=== PATIENT | male | born 1950 | race Caucasian/White ===

== ENCOUNTER 2018-07-03 10:07 | Outpatient (RCR) | payer MEDICARE, BC | END 2018-07-20 | disposition home or self-care (01) | LOC: WCC 10:07 | DX: L59.8 Other specified disorders of the skin and subcutaneous tissue related to radiation (principal); M27.8 Other specified diseases of jaws; Z85.118 Personal history of other malignant neoplasm of bronchus and lung; Z85.810 Personal history of malignant neoplasm of tongue | CPT/HCPCS: 71046; G0277; G0463 ==

== ENCOUNTER 2018-07-03 11:12 | Outpatient (CLI) | payer MEDICARE, BC ==
--- NOTE | 2018-07-03 17:06 | Diagnostic Imaging Report ---
Indication: Shortness of breath Technique: 2 views of the chest Comparison: 05/08/2012 Findings: Wedge-shaped opacity with air bronchograms is seen in the inferior periphery of the right upper lobe. The remainder of the lungs are clear. The pleural spaces are clear There is somewhat hyperinflated. The heart size is normal. The aorta is tortuous and calcified. There is suggestion of a surgical staple line in the left pulmonary hilum. No evidence of pneumothorax. There is a right arm PICC in place. Impression: Wedge-shaped opacity in the right midlung, probably in the inferior right upper lobe, likely pneumonia. The possibility of underlying mass lesion can also be considered, and follow-up to resolution is recommended with consideration for chest CT should opacity fail to resolve No evidence of pneumothorax PICC in place Evidence of prior left lung surgery Findings discussed by phone with Dr. Dee at the time of interpretation
== END 2018-07-03 13:12 | disposition home or self-care (01) ==
LOC: RAD 11:12
DX: R06.02 Shortness of breath (principal); Z98.890 Other specified postprocedural states
CPT/HCPCS: 71046

== ENCOUNTER 2018-07-21 10:00 | Outpatient (RCR) | payer MEDICARE, BC | END 2018-08-20 | disposition home or self-care (01) | LOC: WCC 10:00 | DX: L59.8 Other specified disorders of the skin and subcutaneous tissue related to radiation (principal); M27.8 Other specified diseases of jaws; Z85.810 Personal history of malignant neoplasm of tongue; Z85.118 Personal history of other malignant neoplasm of bronchus and lung | CPT/HCPCS: G0277 ×19 ==

== ENCOUNTER 2018-08-21 08:23 | Outpatient (RCR) | payer MEDICARE, BC | END 2018-09-19 | disposition home or self-care (01) | LOC: WCC 08:23 | DX: M27.8 Other specified diseases of jaws (principal); L59.8 Other specified disorders of the skin and subcutaneous tissue related to radiation; L98.491 Non-pressure chronic ulcer of skin of other sites limited to breakdown of skin; Z85.118 Personal history of other malignant neoplasm of bronchus and lung; Z85.810 Personal history of malignant neoplasm of tongue; Z79.899 Other long term (current) drug therapy | CPT/HCPCS: G0277 ×18 ==

== ENCOUNTER 2019-02-07 14:34 | Outpatient (RCR) | payer MEDICARE, BC | END 2019-02-19 | disposition home or self-care (01) | LOC: WCC 14:34 | DX: L59.8 Other specified disorders of the skin and subcutaneous tissue related to radiation (principal); M27.8 Other specified diseases of jaws; Z85.118 Personal history of other malignant neoplasm of bronchus and lung; Z85.810 Personal history of malignant neoplasm of tongue; Z79.899 Other long term (current) drug therapy | CPT/HCPCS: G0277; G0463 ==

== ENCOUNTER 2019-02-20 08:56 | Outpatient (RCR) | payer MEDICARE, BC | END 2019-03-22 | disposition home or self-care (01) | LOC: WCC 08:56 | DX: L59.8 Other specified disorders of the skin and subcutaneous tissue related to radiation (principal); M27.8 Other specified diseases of jaws; Z79.899 Other long term (current) drug therapy; Z85.810 Personal history of malignant neoplasm of tongue; Z85.118 Personal history of other malignant neoplasm of bronchus and lung | CPT/HCPCS: G0277 ×5 ==

== ENCOUNTER 2019-02-27 09:12 | Outpatient (RCR) | payer SELFPAY | END 2019-03-22 | disposition home or self-care (01) | LOC: WCC 09:12 | DX: L59.8 Other specified disorders of the skin and subcutaneous tissue related to radiation (principal); M27.8 Other specified diseases of jaws; Z79.899 Other long term (current) drug therapy; Z85.810 Personal history of malignant neoplasm of tongue; Z85.118 Personal history of other malignant neoplasm of bronchus and lung | CPT/HCPCS: G0277 ×15 ==

== ENCOUNTER 2019-03-23 09:21 | Outpatient (RCR) | payer SELFPAY | END 2019-04-21 | disposition home or self-care (01) | LOC: WCC 09:21 | DX: L59.8 Other specified disorders of the skin and subcutaneous tissue related to radiation (principal); M27.8 Other specified diseases of jaws; Z85.810 Personal history of malignant neoplasm of tongue; Z85.118 Personal history of other malignant neoplasm of bronchus and lung; Z79.899 Other long term (current) drug therapy | CPT/HCPCS: G0277 ×5 ==